=== PATIENT | female | born 1980 | race Asian ===

== ENCOUNTER 2016-07-16 23:17 | Emergency (ER) | payer OTHER ==
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
[~2016-07-16 23:17] MED LIST: NO MEDICATIONS
== END 2016-07-17 01:05 | disposition home or self-care (01) ==
LOC: SED 23:17
DX: S16.1XXA Strain of muscle, fascia and tendon at neck level, initial encounter (principal); V89.2XXA Person injured in unspecified motor-vehicle accident, traffic, initial encounter; Y92.410 Unspecified street and highway as the place of occurrence of the external cause
CPT/HCPCS: 72040; 99283